=== PATIENT | female | born 1940 | race Caucasian/White ===

== ENCOUNTER 2016-05-03 09:55 | Emergency (ER) | payer MEDICARE, BC ==
[~2016-05-03 09:55] MED LIST: ACET500CAP PO; ADVIL PO; ALPHAGAN P0.1 % OPH; AMARYL4 PO; ANTIBIOTIC PO; ASAB PO; ASTELIN NAS; B12100T PO; BACTROINT TOP; BUM5 PO; CARDCD180 PO; CARDCD360 PO; CARDIZEM LA360 MG PO; CARTIA XT180 MG/24 PO; CENTRUM TAB1 TAB PO; CO Q-10100 MG PO; COQ-10200 MG PO; COREG12 PO; COREG25 PO; CORICIDI2 OR; COSOPT OPH; COZ50 PO; DIOVAN HC1 PO; DORZOL/TIMOL1 ML OP; DRAMAMINE25 MG PO; ELIQUIS 5 MG TAB5 MG PO; FLUOROMETHOL0.1 % OPH; FML OPH SUSP5 ML OPH; GLUCOPHAGE1000 MG PO; GLUCOPHXR PO; HALF81 PO; HUMALOG SC; HYDROCHLOROT25 MG PO; HYGROTON 25 MG25 MG PO; IMDUR30 PO; K500 PO; KLOR-CON M1010 MEQ PO; LANTUS SC; LEVEMIR SC; LIPITOR40 PO; MAXIMUM D3 PO; MCZ25 PO; NITROSTAT0.4 MG SL; NORV5 PO; NOVOLOG SC; NOVOPEN SC; OCEAN NAS; OS500+D PO; PLAVIX PO; PRAVACHOL40 MG PO; TOPXL100 PO; TOUJEO; TOUJEO SC; TRANXENE 3.753.75 MG PO; VIT B12 IJ; XALAT OPH; ZANTAC 75 PO; ZANTAC150 MG PO
[2016-05-03 10:56] LABS: BASOPHILS 0.1 %; BASOPHILS ABSOLUTE 0.02 10/3/uL (0.0-0.16); EOSINOPHILS 1.5 %; EOSINOPHILS ABSOLUTE 0.21 10/3/uL (0.0-0.53); HEMATOCRIT 39.7 % (36.0-48.0); HEMOGLOBIN 12.8 g/dL (12.0-16.0); IMMATURE GRANULOCYTES 0.2 %; IMMATURE GRANULOCYTES ABSOLUTE 0.03 10/3/uL (0.0-0.11); LYMPHOCYTES 14.8 %; LYMPHOCYTES ABSOLUTE 2.13 10/3/uL (0.67-4.30); MEAN CORPUS HGB CONC 32.2 g/dL (32.0-36.0); MEAN CORPUSCULAR HEMOGLOB 31.4 pg (26.0-34.0); MEAN CORPUSCULAR VOLUME 97.5 fL (80-100); MONOCYTES ABSOLUTE 1.58 10/3/uL (0.21-1.20); NEUTROPHILS 72.4 %; NEUTROPHILS ABSOLUTE 10.41 10/3/uL (2.02-8.40); PLATELET COUNT 314 10/3/uL (150-400); RBC DISTRIBUTION WIDTH 13.5 % (12.0-16.0); RED CELL COUNT 4.07 10/6/uL (4.0-5.6)
[2016-05-03 10:57] LABS: ER CBC TAT 0 Hrs 07 Mins; MANUAL DIFF NO %; WHITE BLOOD CELLS 14.4 10/3/uL (4.5-10.5)
[2016-05-03 11:03] LABS: INTERNATIONAL NORMAL RATI 1.2 UNITS (-); PARTIAL THROMBO TIME 31.6 SEC (22.5-37.2); PROTIME (NOT ORD) 14.7 SEC (12.0-14.5)
[2016-05-03 12:34] LABS: A/G RATIO 0.7 (0.7-1.9); ALBUMIN 3.1 G/DL (3.5-5.0); ALKALINE PHOSPHATASE 107 U/L (45-117); BUN (BLOOD UREA NITROGEN) 27 MG/DL (6-23); CALCIUM, SERUM 8.8 MG/DL (8.5-10.4); CHLORIDE, SERUM 103 MMOL/L (96-112); CO2 (CARBON DIOXIDE) 26 MMOL/L (24-34); CREATININE 0.94 MG/DL (0.55-1.02); GFR AFRICAN AMERICAN 70 ML/MIN (>=60); GFR NON AFRICAN AMERICAN 60 ML/MIN (>=60); GLOBULIN 4.4 G/DL (2.5-4.1); GLUCOSE, SERUM 151 MG/DL (60-99); POTASSIUM, SERUM 4.5 MMOL/L (3.5-5.3); SGOT(AST) 17 U/L (5-40); SGPT(ALT) 28 U/L (5-65); SODIUM, SERUM 137 MMOL/L (135-148); TOTAL PROTEIN 7.5 G/DL (6.0-8.5); TROPONIN I <0.02 NG/ML (<0.05)
== END 2016-05-03 15:13 | disposition home or self-care (01) ==
LOC: ER 09:55
PROVIDERS: Hospitalist
PROC: 2W3CX1Z Immobilization of Right Lower Arm using Splint (ICD-10-PCS; principal; 2016-05-03)
DX: S62.171A Displaced fracture of trapezium [larger multangular], right wrist, initial encounter for closed fracture (principal); S80.01XA Contusion of right knee, initial encounter; I10 Essential (primary) hypertension; I25.10 Atherosclerotic heart disease of native coronary artery without angina pectoris; M19.90 Unspecified osteoarthritis, unspecified site; E10.9 Type 1 diabetes mellitus without complications; C34.90 Malignant neoplasm of unspecified part of unspecified bronchus or lung; Z88.6 Allergy status to analgesic agent; Z88.2 Allergy status to sulfonamides; Z88.1 Allergy status to other antibiotic agents; Z79.4 Long term (current) use of insulin; W19.XXXA Unspecified fall, initial encounter
CPT/HCPCS: 70450; 71010; 73100-RT; 73120; 73560-RT; 80053; 84484; 85025; 85610; 85730; 93005; 96374; 96375; 99285; J1170; J2405